=== PATIENT | female | born 1990 | race Two or more races ===

== ENCOUNTER → 2016-08-18 | Outpatient (REF) | payer OTHER ==
[~2016-08-18] MED LIST: ANUS2.5C2 TOP; COLA100C PO; DICL10TA PO; DOCU10CA PO; IBUP-1114 PO; IBUP80TA PO; MOM30SS PO; PERCOCET PO; PREN29CH PO; TYLE167L
== END ==
LOC: M SFHCLERA 11:48
PROVIDERS: ATTEND Nurse Practitioner Family
DX: R10.9 Unspecified abdominal pain (principal)